=== PATIENT | male | born 1970 | race Caucasian/White ===

== ENCOUNTER 2023-07-02 17:33 | Emergency (ER) | payer OTHER ==
[2023-07-02 17:37] VITALS: BP 141/87; O2SAT 97
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
== END 2023-07-02 18:50 | disposition home or self-care (01) ==
LOC: ED 17:33
DX: S62.645A Nondisplaced fracture of proximal phalanx of left ring finger, initial encounter for closed fracture (principal); S01.81XA Laceration without foreign body of other part of head, initial encounter; Y04.0XXA Assault by unarmed brawl or fight, initial encounter; Y92.149 Unspecified place in prison as the place of occurrence of the external cause
CPT/HCPCS: 12011; 99284